=== PATIENT | female | born 1985 | race Caucasian/White ===

== ENCOUNTER 2016-07-24 15:55 | Outpatient (CLI) | payer OTHER ==
[~2016-07-24] VITALS: Ht 175.3 cm; Wt 126.0 kg
[2016-07-24 16:26] VITALS: BP 123/66
[2016-07-24] MEDS ORDERED: ACET50TA PO (16:35)
[2016-07-24] MEDS ORDERED: OXYC1TAB23 PO (16:35)
== END 2016-07-24 17:19 | disposition home or self-care (01) ==
LOC: M LDO 15:55
PROVIDERS: ATTEND Advanced Practice Midwife
DX: O26.853 Spotting complicating pregnancy, third trimester (principal); Z3A.33 33 weeks gestation of pregnancy

== ENCOUNTER 2016-08-31 14:27 | Inpatient (IN) | payer OTHER ==
[2016-08-31] VITALS (24 sets, daily range): BP systolic 125–162; BP diastolic 63–113
[~2016-08-31] VITALS: Ht 175.3 cm; Wt 133.0 kg
[~2016-08-31 14:27] MED LIST: ACET50TA PO; OXYC1TAB23 PO
[2016-08-31 15:54] LABS: BASO % 0.1 % (0.0-1.0); EOS # 0.1 K/mm3 (0.0-0.50); EOS % 0.8 % (0.0-3.0); LARGE UNSTAINED CELL # 0.1 K/mm3 (0.0-0.4); LARGE UNSTAINED CELL % 1.1 % (0.0-4.0); LYMPH % 20.1 % (24.0-44.0); MEAN CORPUSCULAR HEMOGLOBIN 28.5 pg (27.0-33.0); MEAN CORPUSCULAR HGB CONC 33.1 g/dl (32.0-36.5); MEAN CORPUSCULAR VOLUME 86.2 fl (80.0-96.0); MONO # 0.5 K/mm3 (0.0-0.8); MONO % 4.6 % (0.0-5.0); NEUTROPHILS # 7.1 K/mm3 (1.8-7.7); NEUTROPHILS % 73.2 % (36.0-66.0); PLATELET COUNT, AUTOMATED 350 k/mm3 (150-450); RED CELL DISTRIBUTION WIDTH 13.4 % (11.5-14.5); WHITE BLOOD COUNT 9.7 K/mm3 (4.0-10.0)
[2016-08-31 16:23] LABS: ALT/SGPT 14 U/L (12-78); AST/SGOT 17 U/L (15-37); BILIRUBIN,TOTAL 0.3 MG/DL (0.2-1.0); CREATININE FOR GFR 0.66 MG/DL (0.55-1.02); GLOMERULAR FILTRATION RATE > 60.0 (>60)
[2016-08-31] MEDS ORDERED: ACETAMINOPHEN 500 MG TAB PO PRN (17:45)
[2016-08-31] MEDS ORDERED: OXYTOCIN DRIP 30 UNITS in APPROPRIATE DILUENT 1 EA IV SCH (19:15)
[2016-08-31] MEDS ORDERED: LR 1,000 ML IV SCH (19:15)
[2016-08-31] MEDS ORDERED: PENICILLIN G POTASSIUM IV 5 MU in D5W MINI-BAG PLUS 100 ML IV STA (19:48)
[2016-08-31] MEDS: LABETALOL 200 MG TAB PO SCH (21:36)
[2016-09-01] VITALS (35 sets, daily range): BP systolic 119–181; BP diastolic 56–100
[2016-09-01] MEDS: PENICILLIN G POTASSIUM IV 2.5 MU in D5W 100 ML IV SCH ×5 (01:10→12:57)
[2016-09-01] MEDS ORDERED: FENTANYL 2MCG/ML ROPIVACAINE 0.2% NACL 250 ML CADD As Ordered ONE (01:54)
[2016-09-01 02:03] LABS: MEAN CORPUSCULAR HEMOGLOBIN 28.6 pg (27.0-33.0); MEAN CORPUSCULAR HGB CONC 33.4 g/dl (32.0-36.5); MEAN CORPUSCULAR VOLUME 85.6 fl (80.0-96.0); RED CELL DISTRIBUTION WIDTH 13.3 % (11.5-14.5); WHITE BLOOD COUNT 11.1 K/mm3 (4.0-10.0)
[2016-09-01] MEDS ORDERED: ONDANSETRON 4MG/2ML VIAL (J2405) IV PRN ×4 (02:45→22:45)
[2016-09-01] MEDS ORDERED: NALOXONE INJ 0.4 MG/1 ML VIAL (J2310) IV PRN ×3 (02:45→22:00)
[2016-09-01] MEDS ORDERED: ePHEDrine SULFATE 25 MG/5 ML(5MG/ML) SYRINGE IV PRN (02:45)
[2016-09-01] MEDS ORDERED: FENTANYL/ROPIVACAINE/NACL CADD 250 ML EPIDURAL SCH (02:45)
[2016-09-01] MEDS ORDERED: diphenhydrAMINE INJ 50MG/ML VIAL (J1200) IV PRN (02:45)
[2016-09-01] MEDS ORDERED: REFRIGERATOR IV KEYS XX PRN (02:45)
[2016-09-01] MEDS ORDERED: EPIDURAL/PCA KEYS XX PRN (02:45)
[2016-09-01] MEDS ORDERED: EPIDURAL COMMENT XX SCH (02:45)
[2016-09-01] MEDS ORDERED: LACTATED RINGER'S 1000 ML IV PRN (02:45)
[2016-09-01] MEDS: LR 1,000 ML IV SCH (06:15)
[2016-09-01] MEDS: LABETALOL 200 MG TAB PO SCH (09:00)
[2016-09-01] MEDS ORDERED: BICITRA 30ML SOLN UDC As Ordered ONE (21:18)
[2016-09-01] MEDS ORDERED: ceFAZolin 2 GM/D5W 50 ML IV BAG (J0690) As Ordered ONE (21:18)
[2016-09-01] MEDS ORDERED: BICITRA 30ML SOLN UDC PO ONE (21:30)
[2016-09-01] MEDS ORDERED: KETOROLAC 60 MG/2 ML VIAL (J1885) As Ordered ONE (21:57)
[2016-09-01] MEDS ORDERED: ONDANSETRON 4MG/2ML VIAL (J2405) As Ordered ONE (21:57)
[2016-09-01] MEDS ORDERED: OXYTOCIN INJ 10 UNITS/ML VIAL (J2590) As Ordered ONE (21:57)
[2016-09-01] MEDS ORDERED: MORPHINE PRES-FREE INJ 10 MG/10 ML VIAL (J2274) As Ordered ONE (21:58)
[2016-09-01] MEDS ORDERED: NALBUPHINE HCL 10 MG/ML AMP (J2300) IV PRN (22:00)
[2016-09-01] MEDS ORDERED: METOCLOPRAMIDE INJ 10MG/2ML VIAL (J2765) IV PRN ×2 (22:00→22:45)
[2016-09-01] MEDS ORDERED: MEASLES,MUMPS,RUBELLA VACCINE INJ (MMR-II) (90707) SC SCH (22:15)
[2016-09-01] MEDS ORDERED: RHOGAM 300 MCG (1500 IU) INJ (J2790) IM SCH (22:15)
[2016-09-01] MEDS ORDERED: METHYLERGONOVINE MALEATE 0.2 MG/ML VIAL (J2210) IM PRN (22:15)
[2016-09-01] MEDS ORDERED: PROMETHAZINE 25 MG TAB PO PRN (22:15)
[2016-09-01] MEDS ORDERED: fentaNYL 100 MCG/2 ML INJECTION (J3010) As Ordered ONE (22:33)
[2016-09-01] MEDS ORDERED: fentaNYL 100 MCG/2 ML INJECTION (J3010) IV PRN (22:45)
[2016-09-01] MEDS ORDERED: LR 1,000 ML IV SCH (22:45)
[2016-09-01] MEDS ORDERED: MEPERIDINE INJ 25 MG/ML VIAL (J2175) IV PRN (22:45)
[2016-09-01] MEDS ORDERED: PERCOCET 5MG/325MG TAB PO PRN (22:45)
[2016-09-01] MEDS ORDERED: OXYTOCIN 30 UNITS IN 0.9% NaCl 500ML IV BAG (J2590) As Ordered ONE (23:10)
[2016-09-01] MEDS: PERCOCET 5MG/325MG TAB PO PRN (23:43)
[2016-09-02] VITALS (10 sets, daily range): BP systolic 127–166; BP diastolic 72–90
[2016-09-02] MEDS ORDERED: OXYTOCIN 30 UNITS IN 0.9% NaCl 500ML IV BAG (J2590) As Ordered ONE (00:47)
[2016-09-02] MEDS ORDERED: OXYTOCIN INJ 10 UNITS/ML VIAL (J2590) IV ONE (01:15)
[2016-09-02] MEDS: PERCOCET 5MG/325MG TAB PO PRN ×4 (03:52→20:06)
[2016-09-02] MEDS: KETOROLAC 30 MG/ML VIAL (J1885) IV SCH ×4 (04:00→21:31)
[2016-09-02] MEDS ORDERED: miSOPROStol 200 MCG TAB (S0191) PR ONE (04:15)
[2016-09-02] MEDS: LR 1,000 ML IV SCH (06:20)
[2016-09-02 06:50] LABS: MEAN CORPUSCULAR HGB CONC 33.2 g/dl (32.0-36.5); MEAN CORPUSCULAR VOLUME 87.2 fl (80.0-96.0); RED CELL DISTRIBUTION WIDTH 13.4 % (11.5-14.5)
[2016-09-02] MEDS: PRENATAL VITAMIN TAB PO SCH (09:45)
[2016-09-02] MEDS: DOCUSATE SODIUM 100 MG CAP PO SCH ×2 (09:45→20:05)
--- NOTE | 2016-09-02 20:25 | RO ---
DATE OF PROCEDURE: 09/01/2016 PREOPERATIVE DIAGNOSIS: 1. Intrauterine at 38 and 4 weeks estimated gestational age. 2. Arrested dilation. 3. Preeclampsia. POSTOPERATIVE DIAGNOSIS: 1. Intrauterine at 38 and 4 weeks estimated gestational age. 2. Arrest of dilation. 3. Preeclampsia. 4. Delivered. PROCEDURE PERFORMED: Primary low transverse section. SURGEON: Keila Bill MD HAND FILER BALANCE WHEEL: Abdiel Rae MD ANESTHESIA: Spinal. ESTIMATED BLOOD LOSS: 600 mL. IV FLUIDS: 1000 mL. URINE OUTPUT: 100 mL. CONDITION: Stable. COMPLICATIONS: None. SPECIMENS: Placenta. ANTIBIOTICS: Ancef 2 grams IV times one prior to skin incision. INDICATION: The patient is a 31-year-old G1, P0 who was admitted for induction of labor for preeclampsia. The patient progressed to 5 to 6 cm dilated, at which point she was noted to have adequate uterine contractions via intrauterine pressure catheter measurements for 4 hours without change to her cervical exam. The patient at that point was counseled and consented for a primary low transverse section for arrest of dilation. FINDINGS: Normal uterus, tubes and ovaries bilaterally. Viable female infant, Apgars 99, weight 8 pounds 3 ounces, 3716 grams. OPERATIVE PROCEDURE: The risks, benefits, indications and alternatives were reviewed with the patient. Informed consent was obtained. The patient was taken to the operating room where spinal anesthesia was obtained without difficulty. She was then prepped and draped in normal sterile fashion in dorsal supine position with leftward tilt. A Pfannenstiel skin incision was then made with the scalpel and carried through to the underlying layer of fascia. The fascia was then incised in the midline and the incision extended laterally with Kitchen scissors. The superior aspect of the fascial incision was then grasped with Sabrina clamps, elevated and underlying rectus muscles dissected off aided with Kitchen scissors. Incision was then turned to the inferior aspect of the incision which in a similar fashion was grasped and stabbed with Sabrina clamps through the rectus muscles, dissected off, aided with Kitchen scissors. Rectus muscles were at the midline. The peritoneum identified, tented up and entered digitally. The peritoneal incision was then extended horizontally with good visualization of the bladder. Bladder blade was then inserted. Axillary uterine segment was incised in a transverse fashion with the scalpel. The uterine incision was then extended manually. Amniotic sac was artificially ruptured productive of clear fluid. The bladder blade was then removed. The 's head delivered atraumatically in the occiput anterior (OA) position through the hysterotomy without difficulty. The nose and mouth were suctioned with bulb syringe and the cord doubly clamped and cut. The was handed off to the waiting clinical consultant. Placenta was then removed spontaneously with gentle traction on the umbilical cord. The uterus was then exteriorized and cleared of all clots and debris. The uterine incision was then repaired with #0 Vicryl in a running locked fashion. Second layer of #0 Vicryl was then used to imbricate the hysterotomy. The posterior cul-de-sac was then irrigated. Uterus was returned to abdomen and the hysterotomy was again noted to be hemostatic. The fascia was then reapproximated with #0 Vicryl in a running fashion. The subcutaneous layer was closed with #3-0 Vicryl in an interrupted fashion. The skin was then closed with #3-0 Monocryl on a Niles needle in subcuticular fashion. The incision was then dressed. Steri-Strips and a pressure dressing was applied. At the completion of the case, bimanual exam was performed with good uterine tone and minimal vaginal bleeding. The patient tolerated the procedure well. Sponge, lap, and needle counts were correct times three. The patient was taken to the recovery room in stable condition.
[2016-09-03] MEDS: IBUPROFEN 800 MG TAB PO SCH ×3 (00:06→16:29)
[2016-09-03] MEDS: PERCOCET 5MG/325MG TAB PO PRN ×4 (00:38→20:32)
[2016-09-03 06:07] VITALS: BP 142/99
[2016-09-03] MEDS: PRENATAL VITAMIN TAB PO SCH (08:03)
[2016-09-03] MEDS: DOCUSATE SODIUM 100 MG CAP PO SCH ×2 (08:03→20:29)
[2016-09-03 18:00] VITALS: BP 141/71
[2016-09-04] MEDS: IBUPROFEN 800 MG TAB PO SCH ×2 (00:03→08:33)
[2016-09-04 05:45] VITALS: BP 119/64
[2016-09-04] MEDS: PERCOCET 5MG/325MG TAB PO PRN (06:28)
[2016-09-04] MEDS: DOCUSATE SODIUM 100 MG CAP PO SCH (08:33)
[2016-09-04] MEDS: PRENATAL VITAMIN TAB PO SCH (08:33)
[2016-09-04] MEDS ORDERED: COLA100C PO (10:42)
[2016-09-04] MEDS ORDERED: IBUP-1114 PO (10:42)
[2016-09-04] MEDS ORDERED: OXYC1TAB23 PO (10:42)
== END 2016-09-04 14:15 | disposition home or self-care (01) | DRG 766 ==
LOC: M LDO 14:27 → M LDI 17:49 → M OBS 09-01 22:43
PROVIDERS: ADMIT Advanced Practice Midwife; ATTEND Obstetrics & Gynecology
PROC: 3E033VJ Introduction of Other Hormone into Peripheral Vein, Percutaneous Approach (ICD-10-PCS; 2016-08-31)
PROC: 10907ZC Drainage of Amniotic Fluid, Therapeutic from Products of Conception, Via Natural or Artificial Opening (ICD-10-PCS; 2016-09-01)
PROC: 10D00Z1 Extraction of Products of Conception, Low, Open Approach (ICD-10-PCS; principal; 2016-09-01 21:49)
DX: O14.94 Unspecified pre-eclampsia, complicating childbirth (principal); O99.824 Streptococcus B carrier state complicating childbirth; O26.893 Other specified pregnancy related conditions, third trimester; Z3A.38 38 weeks gestation of pregnancy; M06.9 Rheumatoid arthritis, unspecified; O99.72 Diseases of the skin and subcutaneous tissue complicating childbirth; L40.9 Psoriasis, unspecified; O99.214 Obesity complicating childbirth; E66.9 Obesity, unspecified; O62.0 Primary inadequate contractions; Z37.0 Single live birth

== ENCOUNTER 2016-09-11 13:05 | Emergency (ER) | payer OTHER ==
[~2016-09-11] VITALS: Ht 175.3 cm; Wt 118.4 kg
[~2016-09-11 13:05] MED LIST changes: +COLA100C PO; +IBUP-1114 PO
[2016-09-11] MEDS ORDERED: TYLE325T5 PO (13:20)
[2016-09-11 14:45] LABS: BASO % 0.3 % (0.0-1.0); EOS # 0.1 K/mm3 (0.0-0.50); EOS % 1.1 % (0.0-3.0); LARGE UNSTAINED CELL # 0.2 K/mm3 (0.0-0.4); LARGE UNSTAINED CELL % 1.9 % (0.0-4.0); LYMPH % 19.6 % (24.0-44.0); MEAN CORPUSCULAR HEMOGLOBIN 27.9 pg (27.0-33.0); MONO # 0.5 K/mm3 (0.0-0.8); MONO % 4.7 % (0.0-5.0); NEUTROPHILS # 7.5 K/mm3 (1.8-7.7); NEUTROPHILS % 72.4 % (36.0-66.0); PLATELET COUNT, AUTOMATED 661 k/mm3 (150-450); RED CELL DISTRIBUTION WIDTH 13.5 % (11.5-14.5); WHITE BLOOD COUNT 10.4 K/mm3 (4.0-10.0)
[2016-09-11 15:55] VITALS: BP 123/77
[2016-09-11] MEDS ORDERED: CIPR500T89 PO (15:58)
[2016-09-11] MEDS ORDERED: CIPROFLOXACIN 500 MG TAB PO ONE (16:00)
== END 2016-09-11 16:15 | disposition home or self-care (01) ==
LOC: M ED 14:37
DX: O90.89 Other complications of the puerperium, not elsewhere classified (principal); N30.00 Acute cystitis without hematuria; Z88.8 Allergy status to other drugs, medicaments and biological substances